=== PATIENT | female | born 1960 | race Caucasian/White ===

== ENCOUNTER 2023-09-03 12:51 | Day surgery (SDC) | payer OTHER ==
[~2023-09-03] VITALS: Ht 160 cm; Wt 69.5 kg
[2023-09-03 13:07] VITALS: BP 124/81
--- NOTE | 2023-09-03 15:17 | NUR ---
09/03/23 1517 Luzma Saini 1509 PT ARRIVED TO PACU ON 2L VIA NC PT WAKES EASILY AND PASSING LARGE AMOUNT OF GAS. 1513 PT WAKES OFF AND ON AND DENIES CONCERNS. 1515 MD AT BEDSIDE TALKING TO PT. PT WAKES EASILY AND CONTINUES TO PASS LARGE AMOUNTS OF GAS OFF AND ON. EDUCATION GIVEN ON PASSING GAS/AIR.
[2023-09-03 15:43] VITALS: BP 109/72
--- NOTE | 2023-09-03 19:06 | OR ---
[facility] [address], [place] [address] Signed DATE OF OPERATION: 09/03/2023 SURGEON: Chanelle Hilliard MD PREOPERATIVE DIAGNOSES: 1. Colon screening. 2. Family history of colon cancer (mother). POSTOPERATIVE DIAGNOSES: 1. Polyps x3 at cecum and polyp x1, right colon, hepatic flexure. 2. Diverticulosis, sigmoid. PROCEDURES: Total colonoscopy to cecum with cold snare polypectomy x1, hot snare polypectomy x2 and cold morcellation polypectomy x1. ANESTHESIA: Intravenous sedation, fentanyl 200 mcg and Versed 12 mg. INDICATION: This 63-year-old white woman is a patient of LUIS Shaikh. She has been recommended to have a screening colonoscopy. She has never had colon evaluation in the past. She does have family history of mother with colon cancer. She is symptom free, having no bleeding, diarrhea or constipation. She understands the risk of bleeding, infection, and perforation related to colonoscopy and wished to proceed. FINDINGS: The prep was good. Complete colonoscopy was undertaken of the cecum. There were three polyps within the cecum itself. All of them sessile more or less. One of them was unable to be retrieved that was resected. Another polyp was noted to the right colon, it too was resected with cold snare technique. Diverticula were noted of the sigmoid and there were no other findings of concern. PROCEDURE IN DETAIL: The patient was brought to the endoscopy suite and placed in lateral decubitus position given intravenous sedation to the point of slurred speech and nystagmus. Digital rectal examination was normal. An Olympus video colonoscope was passed in the rectum and manipulated throughout the colon noting a polyp at the hepatic flexure/right colon. This was excised with cold Electronically Signed By: CHANELLE HILLIARD MD 09/03/23 1906 PATIENT NAME: BRADEN VITALE OPERATIVE REPORT DATE OF : 62 REPORT #: [id number] PHYSICIAN: CHANELLE HILLIARD MD PCP: MOISÉS CHEUNG REPORT IS CONFIDENTIAL AND NOT TO BE RELEASED WITHOUT AUTHORIZATION [facility] [address], [place] [address] Signed snare technique without problem. The scope was advanced to the cecum where another polyp was noted, this too was excised with cold snare technique. Specimen was large enough and was difficult to extract fully, though reasonable portion was excised. Two other small polyps were noted in the same area, one excised with cold morcellation technique, the other with hot snare polypectomy technique. The scope was withdrawn. Once again in the area of previous biopsy at the hepatic flexure was seen and found to be hemostatic. Further withdrawal showed no other abnormality other than diverticulosis of the sigmoid. Retroflexed view of the rectum was normal. Scope was removed. The patient was taken to the recovery room in good condition. CONCLUDING DIAGNOSIS: Polyps x4, diverticulosis. PLAN: We would recommend repeat colonoscopy in one year under the circumstances of her findings and in light of her family history. MD LAURE Philippe/SANDHYA /[id number] cc: LUIS Shaikh Copies: ~ Electronically Signed By: CHANELLE HILLIARD MD 09/03/23 1906 PATIENT NAME: BRADEN VITALE OPERATIVE REPORT DATE OF : 62 REPORT #: [id number] PHYSICIAN: CHANELLE HILLIARD MD PCP: MOISÉS CHEUNG REPORT IS CONFIDENTIAL AND NOT TO BE RELEASED WITHOUT AUTHORIZATION
== END 2023-09-03 15:55 | disposition home or self-care (01) ==
LOC: OPS 12:51 → DS 12:51 → OPS 14:00
PROVIDERS: ATTEND Surgery
PROC: 0DBH8ZX Excision of Cecum, Via Natural or Artificial Opening Endoscopic, Diagnostic (ICD-10-PCS; 2023-09-03)
PROC: 0DBK8ZX Excision of Ascending Colon, Via Natural or Artificial Opening Endoscopic, Diagnostic (ICD-10-PCS; principal; 2023-09-03 14:00)
DX: Z12.11 Encounter for screening for malignant neoplasm of colon (principal); D12.0 Benign neoplasm of cecum; D12.2 Benign neoplasm of ascending colon; K57.30 Diverticulosis of large intestine without perforation or abscess without bleeding; Z80.0 Family history of malignant neoplasm of digestive organs; Z98.890 Other specified postprocedural states
CPT/HCPCS: 99153; G0500; J2250; J3010; J7121

== ENCOUNTER 2025-01-15 05:45 | Day surgery (SDC) | payer OTHER ==
[~2025-01-15] VITALS: Ht 160 cm; Wt 74.8 kg
[~2025-01-15 05:45] MED LIST: BEET ROOT500 MG PO; FISH OIL 1,0001 EAC7 PO; HYDROCODON-ACE1 EA10 PO; LACTATED RINGER'S 1,000 ML IV SCH; MULTIVITAMIN1 EACH PO; VITAMIN D325 MC2 PO
[2025-01-15 06:12] VITALS: BP 116/66
[2025-01-15] MEDS ORDERED: DEXAMETHASONE SOD PHOS 4 MG/ML VIAL ONE ×2 (06:15→07:57)
[2025-01-15] MEDS ORDERED: Ropivacaine HCl 0.5% 30 ML VIAL ONE (06:15)
[2025-01-15] MEDS ORDERED: SODIUM CHLORIDE 0.9% 20 ML IV ONE (06:15)
[2025-01-15] MEDS ORDERED: dexmedeTOMIDine HCl 200 MCG/2 ML VIAL ONE (06:15)
[2025-01-15] MEDS ORDERED: propofoL 200 MG/20 ML VIAL ONE (06:15)
[2025-01-15] MEDS ORDERED: MIDAZOLAM HCL 2 MG/2 ML VIAL ONE (06:15)
[2025-01-15] MEDS ORDERED: LIDOCAINE HCL 2% 5 ML SDV ONE (06:15)
[2025-01-15] MEDS ORDERED: TYLENOL EXTRA500 MG PO (06:16)
[2025-01-15] MEDS ORDERED: TRANEXAMIC ACID IN NACL,ISO-OS 1,000 MG/100 ML PIGGYBACK IV SCH (07:00)
[2025-01-15] MEDS ORDERED: CEFAZOLIN SODIUM 2 GM/20 ML SYR IV SCH (07:00)
[2025-01-15] MEDS ORDERED: IBLOOD GLUCOSE TEST STRIP 1 EA TEST VI PRN ×2 (07:00→08:15)
[2025-01-15] MEDS ORDERED: LIDOCAINE HCL 1% 5 ML SDV INJ ONE (07:00)
[2025-01-15] MEDS ORDERED: fentaNYL citrate 100 MCG/2 ML VIAL ONE (07:03)
[2025-01-15] MEDS ORDERED: ACETAMINOPHEN 1,000 MG/100 ML VIAL ONE (07:25)
[2025-01-15] MEDS ORDERED: KETOROLAC TROMETHAMINE 30 MG/ML VIAL ONE (07:57)
[2025-01-15] MEDS ORDERED: ondansetron HCL 4 MG/2 ML VIAL ONE (07:57)
[2025-01-15] MEDS ORDERED: HYDROCODONE/ACETA 7.5/325 TAB PO PRN (08:00)
[2025-01-15] MEDS ORDERED: HYDROCODON-ACE1 EA11 PO (08:02)
[2025-01-15] MEDS ORDERED: NALOXONE HCL 0.4 MG SYR IV PRN (08:15)
[2025-01-15] MEDS ORDERED: droPERidol 5 MG/2 ML VIAL IV PRN (08:15)
[2025-01-15] MEDS ORDERED: LORazepam 2 MG/ML VIAL IV PRN (08:15)
[2025-01-15] MEDS ORDERED: ondansetron HCL 4 MG/2 ML VIAL IV PRN (08:15)
[2025-01-15] MEDS ORDERED: fentaNYL citrate 50 MCG/ML SDV IV PRN (08:15)
--- NOTE | 2025-01-15 08:35 | NUR ---
01/15/25 0835 Sheets,Luzma 0804 PT ARRIVED TO PACU ON 6L VIA MASK WITH ORAL AIRWAY IN PLACE, RESP EVEN AND UNLABORED. VSS. 0805 PT STARTED MOVING IN BED AND REACHING UP FOR HER FACE. ORAL AIRWAY REMOVED. PT RIGHT LEG MOVING AND ICE SKATING COACH REPORTS PT HAS RESTLESS LEGS. 0808 PT REACHING FOR HER FACE AND OPENING HER EYES, O2 MASK REMOVED AND DEEP BREATHING ENCOURAGED. WARM BLACKETS GIVEN PER REQUEST. PT DENIES PAIN AND NAUSEA AND EASILY FALLS BACK TO SLEEP. 0825 PT WAKES AND WARM AIR PLACED DUE TO PT REPORTING BEING COLD. PT DENIES CONCERNS AND PLAN OF CARE DISCUSSED. PT RPEORTS LEFT FOOT IS "TINGLING." EDUCATION GIVEN ON BLOCK GIVEN. 0834 PT ASLEEP AND O2 SAT DECREASED TO MID 80S, PT WOKE EASILY AND DEEP BREATHING ENCOURAGED. O2 INCREASED TO UPPER 90S.
[2025-01-15 09:05] VITALS: BP 112/71
--- NOTE | 2025-01-15 09:18 | NUR ---
0900- BEDSIDE REPORT RECIEVED IN PACU FROM GABRIELLA KLINE. SURGICAL SITE ASSESSED TOGETHER. PT RETURNED TO DAY SURGERY. LR INFUSING. PT DENIES QUESTIONS AND CONCERNS. VITAL SIGNS OBTIANED. DISCHARGE CRITERIA DISCUSSED AND PT IS UNDERSTANDING. PT IS ON 2L OF O2. COFFEE PROVIDED PER REQUEST AND APPLE SUACE. [facility] CHECK DONE.
--- NOTE | 2025-01-15 09:28 | NUR ---
0930- PT PUT ON ROOM AIR. PT IS ABLE TO MAINTAIN SATURATIONS ABOVE 92%.
[2025-01-15] MEDS ORDERED: SEVOFLURANE 250 ML BTL INH ONE (09:30)
[2025-01-15 09:59] VITALS: BP 109/69
--- NOTE | 2025-01-15 10:04 | NUR ---
1000- PT IS SITTING UP WATCHING TV. VITAL SIGNS OBTAINED. BED IS STILL IN THE LOWEST POSTION AND LOCKED WITH CALL LIGHT IN REACH. PT DENIES PAIN AND NAUSEA. SHE REPORTS NUMBNESS IN THE LLE AND MAYBE NEEDING TO USE THE RESTROOM SOON. CMS CHECKS DONE AND LR INFUSING IN IV.
--- NOTE | 2025-01-15 11:11 | OR ---
[facility] [address], [place] [address] Signed DATE OF OPERATION: 01/15/2025 SURGEON: Valentino Richmond MD PREOPERATIVE DIAGNOSIS: Bimalleolar ankle fracture left. POSTOPERATIVE DIAGNOSIS: Bimalleolar ankle fracture left. PROCEDURE PERFORMED: Left ankle open reduction and internal fixation, bimalleolar. DIRECTOR OF EXHIBITS: Mirna Cohen PA-C. Mirna was present and critical for all portions of procedure. ANESTHESIA: General. TOURNIQUET TIME: 37 minutes. IMPLANTS: A seven hole 1/3 tubular plate with seven screws, two 3.5 head screw headless screws medially. BRIEF HISTORY: Yvonne is a 64-year-old female with a fracture bimalleolar of her ankle that was unstable and very mobile. Risks and benefits of operative treatment were discussed with her and she elected to proceed. DESCRIPTION OF PROCEDURE: Once consent was obtained she was taken to the operating room. After adequate anesthesia she was placed on the operating room table. All downside pressure points were well padded. Hip bump was placed and the leg was placed in well-padded proximal thigh tourniquet. The leg was then prepped and draped in a standard sterile fashion, exsanguinated using Esmarch bandage and tourniquet inflated to 250 mmHg. The lateral side was approached first through a longitudinal midline incision, carried through skin subcutaneous tissue. The periosteum was divided longitudinally and elevated off the Electronically Signed By: VALENTINO RICHMOND MD 01/15/25 1111 PATIENT NAME: YOVNNE VITALE OPERATIVE REPORT DATE OF : 62 REPORT #: [id number] PHYSICIAN: VALENTINO RICHMOND MD PCP: YANNI SELLERS PAC REPORT IS CONFIDENTIAL AND NOT TO BE RELEASED WITHOUT AUTHORIZATION [facility] [address], [place] [address] Signed fibula and the fracture. The fracture was distracted and cleaned of debris with a [place]. It was then reduced and held with a pointed clamp. Once this was satisfactory reduced and checked using image intensifier a single 3.5 screw was placed from anterior to posterior using standard AO lag technique. The seven hole plate was then fashioned to fit the lateral aspect of the fibula. It was then held in position with a single screw and again checked using image intensifier. The four proximal screw holes were drilled and appropriate length 3.5 screws were placed. Two 4.0 cancellous screws were placed distally. The attention was then turned to the medial side. A curvilinear incision was made along the anterior medial malleolus. Care was taken to protect and retracted the cephalic vein. The fracture was distracted. The periosteum was cleaned out of the fracture and the fracture was reduced and held with a clamp and then pinned with a 1.6 K-wire. The guide pins for the 3.5 headless screws were then positioned in the malleolus and two 40 mm screws were placed over them after drilling. The final radiograph showed anatomic reduction. Dynamic fluoroscopy showed no instability or widening of the mortise with stress. The wounds were cleaned, irrigated with normal saline and closed with 3-0 Monocryl and then rudy. Wound was dressed with Allevyn dressing, gauze, and an Karl wrap. She was placed back in a fracture boot, taken to recovery room in satisfactory condition. All sponge, needle, and instrument counts were correct. Valentino Richmond MD BA/KIKEL /[id number] Copies: ~ Electronically Signed By: VALENTINO RICHMOND MD 01/15/25 1111 PATIENT NAME: YVONNE VITALE OPERATIVE REPORT DATE OF : 62 REPORT #: [id number] PHYSICIAN: VALENTINO RICHMOND MD PCP: YANNI SELLERS PAC REPORT IS CONFIDENTIAL AND NOT TO BE RELEASED WITHOUT AUTHORIZATION
--- NOTE | 2025-01-15 12:10 | NUR ---
1015- PT UP TO USE THE RESTROOM WITH THE HELP OF RN AND A WHEELCHAIR. PT IS ABLE TO VOID TO MEET DISCHARGE CRITERIA. PT IS ABLE TO TRANSFER FROM THE TOLIET TO THE WHEELCHAIR INDEPENDENTLY AND RETURNED TO ROOM BY THIS RN. PT IS ABLE TO TRANSFER INTO THE BED. PT BELONGINGS BROUGHT TO HER AND PT GETTING DRESSED WHILE SITTING ON THE EDGE OF THE BED. CALL LIGHT IN REACH. 1055-PT IS DRESSED. IV REMOVED. DISCHARGE INFORMATION AND EDUCATION GONE OVER. PT DENIES QUESTIONS AND CONCERNS. PT HAS ALL BELONGINGS. PT IS ABLE TO TRANSFER TO WHEELCHAIR. PT PROPELLED OUT OF DAY SURGERY AND IS ABLE TO GET INTO HER FAMILY VEHICLE WITH HER SON AND .
== END 2025-01-15 10:55 | disposition home or self-care (01) ==
LOC: DS 05:45
PROVIDERS: ATTEND Specialist
PROC: 0QSH04Z Reposition Left Tibia with Internal Fixation Device, Open Approach (ICD-10-PCS; principal; 2025-01-15 07:00)
DX: S82.842A Displaced bimalleolar fracture of left lower leg, initial encounter for closed fracture (principal); Z88.5 Allergy status to narcotic agent; Z87.891 Personal history of nicotine dependence; Z91.040 Latex allergy status; W01.0XXA Fall on same level from slipping, tripping and stumbling without subsequent striking against object, initial encounter
CPT/HCPCS: 01480; 64447; 73600; 76942; 80175; C1713; C1769; J0131; J0690; J1100; J1885; J2003; J2250; J2405; J2704; J2795; J3010; J7121

== ENCOUNTER 2025-03-15 07:26 | Day surgery (SDC) | payer OTHER ==
[~2025-03-15] VITALS: Ht 160 cm; Wt 75.0 kg
[~2025-03-15 07:26] MED LIST changes: +HYDROCODON-ACE1 EA11 PO; +IBLOOD GLUCOSE TEST STRIP 1 EA TEST VI PRN; +LIDOCAINE HCL 1% 5 ML SDV INJ ONE; +MIDAZOLAM HCL 5 MG/5 ML VIAL IV PRN; +TYLENOL EXTRA500 MG PO; +fentaNYL citrate 100 MCG/2 ML VIAL IV PRN
--- NOTE | 2025-03-15 07:36 | NUR ---
BRIEF CONVERSATION WITH PT IN [place]. PT APPEARED TO BE IN OVERALL GOOD SPIRITS, NO IMMEDIATE NEEDS. SHIPPING TEAM LEADER PROVIDED SUPPORTIVE PRESENCE, HOSPITALITY, PRAYER.
[2025-03-15 07:45] VITALS: BP 128/76
[2025-03-15] MEDS ORDERED: PERCOCET 5-3251 EACH PO (07:51)
[2025-03-15] MEDS ORDERED: fentaNYL citrate 100 MCG/2 ML VIAL ONE (08:29)
[2025-03-15] MEDS ORDERED: MIDAZOLAM HCL 5 MG/5 ML VIAL ONE (08:29)
--- NOTE | 2025-03-15 09:54 | NUR ---
03/15/25 0954 Michelle Watts 0976 PT ARRIVED IN PACU WIDE AWAKE AND TALKING TO STAFF. ABD SOFT AND PASSING FLATUS. 0940 DR AT BEDSIDE. ALL QUESTIONS ANSWERED. 0950 SITTING UP IN BED SIPPING ON COFFEE.
[2025-03-15 09:58] VITALS: BP 99/75
--- NOTE | 2025-03-18 11:32 | OR ---
[facility] [address], [place] [address] Signed DATE OF OPERATION: 03/15/2025 SURGEON: Chanelle Hilliard MD PREOPERATIVE DIAGNOSES: 1. Family history of colon cancer (mother). 2. Multiple polyps in 2022. POSTOPERATIVE DIAGNOSES: Small polyp of cecum and small polyp of rectum. PROCEDURE: Total colonoscopy to cecum with cold morcellation polypectomy x2. ANESTHESIA: Intravenous sedation, fentanyl 200 mcg, and Versed 6 mg. INDICATION: This 65-year-old woman is a patient of LUIS Shaikh. She has family history of colon cancer in her mother. She underwent colonoscopy in August of 2023 where she was found to have three polyps of the cecum, one polyp in the right colon and the hepatic flexure, as well as sigmoid diverticulosis. She is admitted at this time to undergo early surveillance based on multiple polyps and family history of colon cancer. She understands the risk of bleeding, infection, and perforation related to colonoscopy and wished to proceed. FINDINGS: The prep was excellent. Complete colonoscopy was undertaken of the cecum. There was a small polyp in the cecum and another in the rectum. Both were excised with cold morcellation technique. A few scattered diverticula of the sigmoid were noted as well. DESCRIPTION OF PROCEDURE: The patient was brought to the endoscopy suite and placed in lateral decubitus position, given intravenous sedation to the point of slurred speech and nystagmus. Digital rectal examination was normal. An Olympus video colonoscope was passed in the rectum and manipulated throughout the colon ultimately intubating the cecum itself. The appendiceal orifice and ileocecal valve were easily identified. Partial insertion into the ileocecal valve showed it to be normal. There was noted to be a small polyp in the cecum. This was excised with Electronically Signed By: CHANELLE HILLIARD MD 03/18/25 1132 PATIENT NAME: BRADEN VITALE OPERATIVE REPORT DATE OF : 62 REPORT #: [id number] PHYSICIAN: CHANELLE HILLIARD MD PCP: TAMIKO VALDOVINOS REPORT IS CONFIDENTIAL AND NOT TO BE RELEASED WITHOUT AUTHORIZATION [facility] [address], [place] [address] Signed cold morcellation technique. The scope was then withdrawn and examination throughout showed no sign of abnormality other than diverticula of the sigmoid until the rectum itself. The small polyp was excised with cold morcellation technique. Retroflexed view of the rectum was normal. Scope was removed. The patient was taken to the recovery room in good condition. CONCLUDING DIAGNOSIS: Two polyps. PLAN: Recommend repeat colonoscopy in 5 years based on family history and history of polyps. It can be done sooner should symptoms develop. She will return to the ongoing care of her primary care provider formally LUIS Shaikh. If she has any problems regarding colon symptoms, she will let me know sooner. MD LAURE Philippe/SANDHYA /[id number] cc: Tamiko Valdovinos, [employer] Copies: ~ Electronically Signed By: CHANELLE HILLIARD MD 03/18/25 1132 PATIENT NAME: BRADEN VITALEN OPERATIVE REPORT DATE OF : 62 REPORT #: [id number] PHYSICIAN: CHANELLE HILLIARD MD PCP: TAMIKO VALDOVINOS-C REPORT IS CONFIDENTIAL AND NOT TO BE RELEASED WITHOUT AUTHORIZATION
--- NOTE | 2025-03-18 12:00 | PATH ---
[facility] [address] [place], [place] [address] Signed SPECIMEN(S): A CECUM POLYP SPECIMEN(S): B RECTAL POLYP SPECIMEN SOURCE: A. CECUM POLYP B. RECTAL POLYP CLINICAL HISTORY: History of polyps at cecum and hepatic flexure FINAL PATHOLOGIC DIAGNOSIS: A. Cecum polyp: - Polypoid colonic mucosa, negative for definite epithelial dysplasia or pathologic inflammation. B. Rectal polyp: - Hyperplastic polyp (two fragments). JVR:clv MICROSCOPIC EXAMINATION: Histologic sections of all submitted blocks are examined by light microscopy. These findings, together with the gross examination, support the pathologic diagnosis. GROSS DESCRIPTION: A. The specimen, labeled and designated "Darshanlmay, cecum polyp," is received in formalin and consists of one walker soft tissue fragment, 0.4 cm. Entirely submitted in (A1). B. The specimen, labeled and designated "Darshanlke, rectal polyp," is received in formalin and consists of two walker soft tissue fragments, ranging from 0.2-0.3 cm. Entirely submitted in (B1). VB (under the direct supervision of a pathologist) The Gross Description was prepared using a voice recognition system. The report was reviewed for accuracy; however, sound-alike word errors, addition and/or deletions may occur. If there is any question about this report, please contact Client Services. PERFORMING LABORATORY: Technical component was performed by [facility], [address] [place] [id number] (CLIA# [id number]). Professional interpretation was performed by [facility] - [facility], [address] [place] [id number] (CLIA#: [id number]). PATIENT NAME: BRADEN VITALE PATHOLOGY DATE OF : 62 REPORT #: [id number] PHYSICIAN: [facility] PCP: MOISÉS CHEUNG REPORT IS CONFIDENTIAL AND NOT TO BE RELEASED WITHOUT AUTHORIZATION [facility] [address] [place] [address] [place], [place] [address] Signed Diagnostician: Isaias Rodriguez MD Pathologist Electronically Signed 03/18/2025 Copies: ~ PATIENT NAME: BRADEN VITALE PATHOLOGY DATE OF : 62 REPORT #: [id number] PHYSICIAN: [facility] PCP: MOISÉS CHEUNG REPORT IS CONFIDENTIAL AND NOT TO BE RELEASED WITHOUT AUTHORIZATION
== END 2025-03-15 10:09 | disposition home or self-care (01) ==
LOC: DS 07:26 → OPS 07:26 → DS 08:30 → OPS 10:09
PROVIDERS: ATTEND Surgery
PROC: 0DBP8ZX Excision of Rectum, Via Natural or Artificial Opening Endoscopic, Diagnostic (ICD-10-PCS; 2025-03-15)
PROC: 0DBH8ZX Excision of Cecum, Via Natural or Artificial Opening Endoscopic, Diagnostic (ICD-10-PCS; principal; 2025-03-15 08:30)
DX: Z12.11 Encounter for screening for malignant neoplasm of colon (principal); K63.5 Polyp of colon; K62.1 Rectal polyp; Z80.0 Family history of malignant neoplasm of digestive organs; Z88.0 Allergy status to penicillin
CPT/HCPCS: 99153; G0500; J2250; J3010; J7121